=== PATIENT | female | born 1965 | race African-American/Black ===

== ENCOUNTER 2019-06-06 14:57 | Emergency (ER) | payer BC ==
[~2019-06-06] VITALS: Ht 160 cm; Wt 79.2 kg
[~2019-06-06 14:57] MED LIST: ACET1TAB40 PO; IBUP-1542 PO
[2019-06-06 15:01] VITALS: BP 164/85; PULSE 82; RESP 18; Ht 160 cm; Wt 79.2 kg
== END 2019-06-06 15:26 | disposition home or self-care (01) ==
LOC: E/R 14:57
DX: M25.532 Pain in left wrist (principal); F17.210 Nicotine dependence, cigarettes, uncomplicated
CPT/HCPCS: 99282